=== PATIENT | male | born 1985 | race Caucasian/White ===

== ENCOUNTER 2017-01-05 15:10 | Emergency (ER) | payer SELFPAY ==
[~2017-01-05] VITALS: Ht 180.3 cm; Wt 73.9 kg
[2017-01-05 15:21] VITALS: BP 150/103
[2017-01-05] MEDS ORDERED: DIPH,PERTUSS(ACELL),TET VAC/PF 0.5 ML IM-VACC ONE ×2 (15:45→16:00)
== END 2017-01-05 16:20 | disposition home or self-care (01) ==
LOC: ED 16:10
DX: S51.002A Unspecified open wound of left elbow, initial encounter (principal); V00.131A Fall from skateboard, initial encounter; Y93.51 Activity, roller skating (inline) and skateboarding; Y92.488 Other paved roadways as the place of occurrence of the external cause; Y99.8 Other external cause status
CPT/HCPCS: 90471; 90715